=== PATIENT | male | born 2000 | race Caucasian/White ===

== ENCOUNTER 2024-11-21 15:36 | Emergency (ER) | payer SELFPAY ==
[2024-11-21 15:37] VITALS: BP 172/100; PULSE 94; RESP 18; TEMP 36.8; O2SAT 99; BMI 32.5
--- NOTE | 2024-11-21 16:01 | ED_ITS ---
<Statement entered by Heath Melchor MD - 11/21/24 23:06> I was consulted by the MARIAMA, and we discussed the complexity of the problems being addressed. I approved the treatment and management plan for this patient's care in the emergency department, thus performing a substantive portion of the medical decision making. Heath Melchor MD, FERMIN, FACEP Discharge Plan Disposition Patient Disposition: Home, Self-Care Condition: Good Prescriptions Prescriptions: No Action No Known Home Medications Referrals Follow up/Referrals: Provider,Referral, [Primary Care Provider] - See instructions Activity Restrictions/Add. Instructions Additional Instructions/Restrictions: Increase fluids and rest. Please find a primary care provider to address headaches and blood pressure. If you have any further problems or concerns please return to the ED. Clinical Impressions Clinical Impression: Headache Instructions Patient Instructions: DI for Headache Print Language Print Language: Lithuanian Discharge ED Provider: Heath Melchor General Adult HPI General Chief complaint: Headache Stated complaint: headache Time Seen by Provider: 11/21/24 16:35 Mode of Arrival: Ambulatory Source of Information: Patient Limitations: No Limitations Description of Symptoms (Recalled from ER Triage Doc. by RN): PT REPORTS HEAD INJURY AT WORK EARLIER THIS MONTH, RECEIVED 5 OSCAR TO [facility] AND HAD FULL WORK-UP FOR INJURY. PT C/O HEADACHE FOR 5-6 DAYS UNRELIEVED WITH TYLENOL, MOTRIN OR EXCEDRIN. DENIES LIGHT OR SOUND SENSITIVITY History of Present Illness HPI narrative: This is a 24-year-old male who comes in for complaint of headache for the last 5 days with complaint of lightheadedness occasionally. He tells me that he has no other symptoms including no nausea, vomiting or diarrhea. No light or sound sensitivity. He believes that this is related to a head injury that he had during the first week of September while working. He tells me that something hit his head causing a laceration. He had to have 5 oscar at that time. He went to the emergency room and had a CT scan as well. He was told that the CT scan was negative. He says his mother is also concerned about this being related. On the monitor his blood pressure was 172/100. I retook his blood pressure and it was 147/87. We did discuss this as he tells me he is really nervous in hospitals. He is not having any chest pain or shortness of breath. He has no other symptoms at this time. He has not been ill recently. No fevers or chills. The last time he was sick with the flu was July. Related Data Home Medications ?Medication ?Instructions ?Recorded ?Confirmed No Known Home Medications 11/21/24 11/21/24 Allergies Allergy/AdvReac Type Severity Reaction Status Date / Time No Known Allergies Allergy Verified 11/21/24 15:57 [facility] Disclaimer: The information contained in this section may have been updated after the patient was seen, as this information can be updated by other users. Medical History (Updated 11/21/24 @ 16:49 by Shahla Perkins (ED), CIVIL TECHNICIAN) No significant past medical history Family History (Updated 11/21/24 @ 15:56 by Dee Lewis RN) Other No significant family history Social History (Updated 11/21/24 @ 15:56 by Dee Lewis RN) Smoking Status: Never smoker alcohol intake: never current occupational status: employed Travel in the last 8 weeks: None Have you lived/traveled outside [place] in past 30 days?: No Contact w/someone who lives/traveled outside [place] past 30 days?: No Exposure to someone with infectious disease in past 14 days?: No Do you have a fever (greater than 100.4 F or 38 C)?: No Have you tested positive for COVID-19: No Exposed to someone with COVID-19 in past 14 days?: No Do you have a sore throat?: No Do you have a cough?: No Do you have any weakness?: No Are you experiencing any nausea/vomitting?: No Do you have any diarrhea?: No Are you experiencing any unusual bleeding?: No Do you have any muscle aches/pain?: No Do you have any abdominal pain?: No Are you experiencing loss of taste or smell?: No ROS Obtained: Yes Systems reviewed as appropriate & no additional complaints except as documented Constitutional Constitutional: Reports as per HPI Physical Exam General General appearance: alert and in no apparent distress Head Head exam: atraumatic and normocephalic Eye Eye exam: Present normal appearance, PERRL and EOMI ENT ENT exam: Present normal oropharynx and mucous membranes moist Neck Neck exam: Present normal inspection, full ROM and trachea midline Respiratory Respiratory exam: Present normal lung sounds bilaterally Cardiovascular Cardiovascular exam: Present regular rate, normal rhythm, normal heart sounds, +S1 and +S2 Extremities Exam Extremities exam: Present normal inspection, full ROM and normal capillary refill Neurological Exam Neurological exam: Present alert, oriented X3 and normal gait Skin Skin exam: Present warm, dry and intact Medical Decision Making Medical Records Screening: Per USPSTF and CDC recommendations, given the prevalence of disease in our region, it is our hospital?s policy to screen for HIV and viral Hepatitis for all patients aged 18 and over and those with ongoing risk factors. Gerson Inquiry Pt receiving controlled substance: No Gerson was queried for this patient: No Vital Signs: 11/21/24 15:37 11/21/24 16:30 Temperature 98.3 F Temperature Source Oral Pulse Rate 79 Pulse Rate [Radial] 94 H Respiratory Rate 18 16 Blood Pressure 138/82 Blood Pressure [Left Arm] 172/100 H Blood Pressure Mean [Left Arm] 124 Blood Pressure Source [Left Arm] Automatic Cuff Blood Pressure Position [Left Arm] Sitting 02 Sat by Pulse Oximetry 99 99 Oxygen Delivery Method Room Air Room Air Orders (Tests/Meds): ED MEDICATIONS Discontinued Medications Generic Name Dose Route Start Last Admin Trade Name Cole PRN Reason Stop Dose Admin Acetaminophen/Butalbital/Caffeine 2 each 11/21/24 15:58 11/21/24 16:36 Butalb/Acetaminophen/Caffeine 50mg/325mg/40mg Tab PO 11/21/24 15:59 2 each ONCE ONE Administration Ketorolac Tromethamine 30 mg 11/21/24 15:58 11/21/24 16:36 Ketorolac 30mg/Ml Vial IM 11/21/24 15:59 30 mg ONCE ONE Administration Medical Decision Narrative: Insert review patient is a 24-year-old male presenting to the emergency department for evaluation of headache. Patient has had a headache for the last 5 days. He has had no nausea or vomiting. No light sensitivity or sound sensitivity. He has taken ibuprofen, Tylenol and Excedrin for these headaches. He says he is living his daily life and being able to work and do everything. He was just nervous since he had a head injury the beginning of September where he was hit in the head and had to have oscar. He was scanned at the ER and it was negative at that time. He has not had any headaches until the last 5 days. Patient is hemodynamically stable but had an initial blood pressure of 172/100. We retook it and it is now 138/82.. Differential diagnosis includes headache, hypertension, among others. Here in the ED we did give Toradol and Fioricet for headache. Patient said this has helped his head. He says he does have some pressure still in his head but it is much better. Patient is stable for discharge home. He has been encouraged to get a PCP. Critical Care Critical Care Time Critical Care Time: No
[2024-11-21 16:30] VITALS: BP 138/82; PULSE 79; RESP 16; O2SAT 99
--- NOTE | 2024-11-21 16:33 | PC.NURSE ---
ROUNDED ON THE PT. THE PT VOICES THAT HE DOES NOT NEED ANYTHING AT THIS TIME. CALL LIGHT IS WITHIN REACH OF THE PT.
[2024-11-21] MEDS: BUTALB/ACETAMINOPHEN/CAFFEINE 50MG/325MG/40MG TAB 2 EACH PO (16:36)
[2024-11-21] MEDS: KETOROLAC 30MG/ML VIAL 30 MG IM (16:36)
[2024-11-21 17:04] VITALS: BP 124/83; PULSE 77; RESP 16; TEMP 36.8; O2SAT 99
== END 2024-11-21 17:06 | disposition home or self-care (01) ==
PROVIDERS: Emergency Provider Student in an Organized Health Care Education/Training Program
DX: R51.9 Headache, unspecified (principal); R42 Dizziness and giddiness
CPT/HCPCS: 96372; 99283; J1885